=== PATIENT | female | born 1995 | race American Indian/Alaskan Native ===

== ENCOUNTER 2016-10-24 11:20 | Emergency (ER) | payer SELFPAY ==
[2016-10-24 13:04] LABS: Bacteria,Urine 1+ /HPF (Negative); Bilirubin,Urine NEG (Negative); Blood,Urine NEG (Negative); Ketones,Urine NEG (Negative); Leukocyte Esterase,Urine NEG (Negative); Mucus,Urine FEW /HPF; Nitrite,Urine NEG (Negative); Protein,Urine <15 mg/dL mg/dL (Negative); Urobilinogen,Urine < 2.0 mg/dL (<2.0); WBC,Urine < 1.0 /HPF (0.0-6.0)
--- NOTE | 2016-10-24 13:25 | Emergency Department Report ---
ED Female HPI - General Chief complaint: Urogenital-Female Stated complaint: LOWER ABD PAIN Time Seen by Provider: 10/24/16 12:53 Source: patient Mode of arrival: Ambulatory Limitations: No Limitations - History of Present Illness Initial comments: 21-year-old female presents with complaint of 3 weeks of pelvic pain. Patient denies any vaginal discharge no intermittent vaginal bleeding. Patient states sensation of pain is crampy to sharp and indicates that it is in her lower pelvic region. Patient denies any vaginal or genitourinary lesions. Denies any pain specific to intercourse or urination. Denies any history of STDs including chlamydia or gonorrhea. Denies nausea or vomiting no fever or chills. States she has had irregular menstrual period LMP 07/14. MD Complaint: pelvic pain Onset/Timin -: week(s) Location: suprapubic Severity: moderate Severity scale (0 -10): 5 Quality: cramping Consistency: intermittent - Related Data Previous Rx's Medication Instructions Recorded Last Taken Type Ibuprofen [Motrin] 600 mg PO Q8H PRN #30 tablet 10/24/16 Unknown Rx metroNIDAZOLE [Flagyl TAB] 500 mg PO Q12HR #14 tab 10/24/16 Unknown Rx Allergies Allergy/AdvReac Type Severity Reaction Status Date / Time No Known Allergies Allergy Unverified 10/24/16 11:56 ED Review of Systems ROS: Stated complaint: LOWER ABD PAIN Other details as noted in HPI Constitutional: denies: chills, fever Eyes: denies: eye pain, eye discharge, vision change ENT: denies: ear pain, throat pain Respiratory: denies: cough, shortness of breath, wheezing Cardiovascular: denies: chest pain, palpitations Endocrine: no symptoms reported Gastrointestinal: denies: abdominal pain, nausea, diarrhea Genitourinary: other (pelvic pain). denies: urgency, dysuria, discharge Musculoskeletal: denies: back pain, joint swelling, arthralgia Skin: denies: rash, lesions Neurological: denies: headache, weakness, paresthesias Psychiatric: denies: anxiety, depression Hematological/Lymphatic: denies: easy bleeding, easy bruising ED Past Medical Hx - Past Medical History Previous Medical History?: No - Surgical History Past Surgical History?: No - Social History Smoking Status: Never Smoker Substance Use Type: None - Medications Home Medications: Home Medications Medication Instructions Recorded Confirmed Last Taken Type Ibuprofen [Motrin] 600 mg PO Q8H PRN #30 tablet 10/24/16 Unknown Rx metroNIDAZOLE [Flagyl TAB] 500 mg PO Q12HR #14 tab 10/24/16 Unknown Rx ED Physical Exam - General Limitations: No Limitations General appearance: alert, in no apparent distress - Head Head exam: Present: atraumatic, normocephalic - Eye Eye exam: Present: normal appearance - ENT ENT exam: Present: mucous membranes moist - Neck Neck exam: Present: normal inspection - Respiratory Respiratory exam: Present: normal lung sounds bilaterally. Absent: respiratory distress - Cardiovascular Cardiovascular Exam: Present: regular rate, normal rhythm. Absent: systolic murmur, diastolic murmur, rubs, gallop - GI/Abdominal GI/Abdominal exam: Present: soft, normal bowel sounds - External exam: Present: normal external exam Speculum exam: Present: normal speculum exam Bi-manual exam: Present: adnexal tenderness (mild right-sided adnexal tenderness no cervical motion tenderness) - Extremities Exam Extremities exam: Present: normal inspection, full ROM - Back Exam Back exam: Present: normal inspection, full ROM - Neurological Exam Neurological exam: Present: alert, oriented X3, CN II-XII intact, normal gait - Psychiatric Psychiatric exam: Present: normal affect, normal mood - Skin Skin exam: Present: warm, dry, intact, normal color. Absent: rash ED Course Vital Signs 10/24/16 11:52 Temperature 98.0 F Pulse Rate 81 Respiratory 17 Rate Blood Pressure 134/87 O2 Sat by Pulse 98 Oximetry ED Medical Decision Making - Medical Decision Making A/P: Bacterial vaginosis, pelvic pain 1-wet prep shows clue cells greater than 20%, with treatment empirically with metronidazole 2-ultrasound pelvic region unremarkable no indication of torsion good blood flow to both ovaries no significant masses. No clincial signs of PID, no CMT, no discharge, no fever or chills, no reports of vaginal dc, no prior hx of PID of GC 3-we'll refer patient to [facility] 4-Motrin 600 when necessary 5- UA unremarkable, patient not currently hCG urine negative Critical care attestation.: If time is entered above; I have spent that time in minutes in the direct care of this critically ill patient, excluding procedure time. ED Disposition Clinical Impression: Pelvic pain, Bacterial vaginosis Disposition: DISCHARGED TO HOME OR SELFCARE Is pt being admited?: No Does the pt Need Aspirin: No Condition: Stable Instructions: Bacterial Vaginosis (ED), Chronic Pelvic Pain in Women (ED) Additional Instructions: Patient advised to call for follow-up with [facility] Prescriptions: Ibuprofen [Motrin] 600 mg PO Q8H PRN #30 tablet PRN Reason: Pain metroNIDAZOLE [Flagyl TAB] 500 mg PO Q12HR #14 tab Referrals: [facility] [Provider Group] - 3-5 Days ANGELITA HARMON MD [Staff Physician] - 3-5 Days Forms: STI Treatment and Prevention, Accompanied Note, Work/School Release Form (ED) Time of Disposition: 16:14
--- NOTE | 2016-10-24 16:04 | Ultrasound Report ---
FINAL REPORT EXAM: US TRANSVAGINAL HISTORY: right sided pelvic pain, do w/ doppler TECHNIQUE: Grayscale and color and spectral doppler ultrasound imaging of the pelvis was performed transvaginally. PRIORS: None. FINDINGS: Uterus: The uterus is homogeneous in echogenicity without focal mass. The uterus measures 7.4 x 2.9 x 3.6 centimeters. Endometrium: The endometrium is normal in echogenicity. The endometrium measures 5.5 millimeters. Ovaries: The ovaries are normal in echogenicity without cyst or mass. Several small bilateral ovarian follicles are seen. Normal arterial waveforms were seen to the ovaries. Normal flow is seen to the ovaries. The right ovary measures 2.9 x 1.8 x 2.0 centimeters. The left ovary measures 3.1 x 2.3 x 1.6 centimeters. Free fluid: None. IMPRESSION: Normal pelvic ultrasound.
--- NOTE | 2016-10-24 16:07 | Ultrasound Report ---
FINAL REPORT EXAM: US PELVIS DUPLEX DOPPLER COMP HISTORY: right sided pelvic pain, do w/ doppler TECHNIQUE: Grayscale and color and spectral doppler ultrasound imaging of the pelvis was performed transabdominally and transvaginally. PRIORS: None. FINDINGS: Uterus: The uterus is homogeneous in echogenicity without focal mass. The uterus measures 7.4 x 2.9 x 3.6 centimeters. Endometrium: The endometrium is normal in echogenicity. The endometrium measures 5.5 millimeters. Ovaries: The ovaries are normal in echogenicity without cyst or mass. Small bilateral ovarian follicles were seen. Normal arterial waveforms were seen to the ovaries. Normal flow is seen to the ovaries. The right ovary measures 2.9 x 1.8 x 2.0 centimeters. The left ovary measures 3.1 x 2.3 x 1.6 centimeters. Free fluid: None. IMPRESSION: Normal pelvic ultrasound.
[2016-10-24 16:29] VITALS: BP 133/93
== END 2016-10-24 16:29 | disposition home or self-care (01) ==
LOC: ED 11:20
DX: N76.0 Acute vaginitis (principal); B96.89 Other specified bacterial agents as the cause of diseases classified elsewhere; R10.2 Pelvic and perineal pain
CPT/HCPCS: 76830; 81001; 81025; 87210; 87591; 93975